=== PATIENT | female | born 2000 | race Caucasian/White ===

== ENCOUNTER 2021-12-03 18:48 | Emergency (ER) | payer OTHER, SELFPAY ==
[2021-12-03 18:56] VITALS: PULSE 105; RESP 20; O2SAT 100; BMI 35.8
--- NOTE | 2021-12-03 19:12 | XR_ITS ---
PROCEDURE INFORMATION: Exam: XR Right Hand Exam date and time: 12/03/2021 7:12 PM Age: 21 years old Clinical indication: Injury or trauma; Other: Punched a heater while angry; Blunt trauma (contusions or hematomas); Hand; Patient HX: Patient punched a metal heater while angry. Right 4th metacarpal pain. Shielded. TECHNIQUE: Imaging protocol: XR Right hand. Views: 3 or more views. COMPARISON: No relevant prior studies available. FINDINGS: Bones/joints: Acute, mildly comminuted fracture of the 5th metacarpal neck. There is mild impaction and approximately 20 degrees volar angulation of the distal fragment. Soft tissues: Soft tissue swelling. IMPRESSION: Acute, mildly impacted/angulated 5th metacarpal neck fracture.
[2021-12-03 19:49] VITALS: BP 131/91; PULSE 95; RESP 16; TEMP 37; O2SAT 100; BMI 28.3
--- NOTE | 2021-12-03 20:11 | HMH.EDUTC ---
[facility] [place] Clinical Impression: Hand fracture Qualifiers: Encounter type: initial encounter Fracture type: closed Laterality: right Qualified Code(s): S62.91XA - Unspecified fracture of right wrist and hand, initial encounter for closed fracture Disposition: Home, Self-Care Condition on Discharge: Good Instructions: DI for a Hand Fracture, How To Perform RICE (Rest, Ice, Compress, Elevate), Amoxicillin and Clavulanic Acid, Hand Fracture Additional Instructions: *RICE, Rest the extremity, Ice 15-20 minutes 3-4 times daily, Compress- wear the hermes wrap as discussed as much as possible to help reduce swelling and pain, Elevate the extremity when at rest *Hermes wrap/Orthoglass Splint is for support and help control swelling, Be sure that is not to tight but not to loose either *Elevate when resting *take Tylenol as directed on package for pain Immediately follow up with your family doctor for new or worsening of symptoms, or no noticeable improvement over the next 3-[address] Lipscomb's office in the morning for appointment Take medications as prescribed to prevent infection Prescriptions: Amoxicillin/Potassium Clav [Amox-Clav 875-125 mg Tablet] 1 tab PO BID #14 tab Transmission Status: Received by [id number] Referrals: ProviderKay MD [Primary Care Provider] - As needed Jan Lipscomb MD [Staff Physician] - (call office in the morning for appointment) Forms: Work/School Release Time of Disposition: 20:34 Medical Decision Making - Payam Inquiry Pt receiving controlled substance: No Payam was queried for this patient: No Vital Signs: 12/03/21 18:56 12/03/21 19:49 Temperature 98.6 F Temperature Source Oral Pulse Rate [Left Radial] 105 H 95 H Respiratory Rate 20 16 Blood Pressure [Right Arm] 131/91 H Blood Pressure Mean [Right Arm] 104 Blood Pressure Source [Right Arm] Automatic Cuff Blood Pressure Position [Right Arm] Sitting 02 Sat by Pulse Oximetry 100 100 Oxygen Delivery Method Room Air Room Air - Lab Data Lab Results 12/03/21 19:58: [facility] Positive - Radiology Data #1 Image(s): Hand Image Reviewed: Yes I have reviewed radiologist's interpretation IMPRESSION: Acute, mildly impacted/angulated 5th metacarpal neck fracture. - Physician Consults Physician Consulted: Dr Lipscomb Time: 20:26 Reason -: Orthopedic Eval/Care Comment/Response: spoke with Dr Lipscomb and he advised kelsey splint and ulnar gutter and due to abrasions start patient on antibiotics to cover infection and have her call office in the morning for appointment Medical Decision Narrative: patient denies , will fully shield for xray of hand Discussed with patient after she advised that she was on Depo and she stopped having periods in Nov but she took several home test and still denies will do test in the [facility] and patient now agreeing [facility] [place] - General Stated complaint: AO 12/02@2300 injured R Wrist Time Seen by Provider: 12/03/21 20:11 Mode of Arrival: Ambulatory Source of Information: Patient Limitations: No Limitations Description of Symptoms (Recalled from Triage Doc. by RN): Pt stated that she has injured right pinky after hitting it on a heater last night HEENT Symptoms (Recalled from RN notes): No Resp Symptoms (Recalled from RN notes): No Skin Symptoms (Recalled from RN notes): No MS Symptoms (Recalled from RN notes): No Functional Status (Recalled from RN notes): n/a - History of Present Illness Provider Complaint: Patient states that she was mad and punched a heater States she felt a pop in her right little finger States that she had a friend try to pull the finger and put it back in place and she did feel it pop again States that she was still having pain so she came in to get it checked - Related Data Previous Rx's Medication Instructions Recorded Amoxicillin/Potassium Clav 1 tab PO BID #14 tab 12/03/21 [Amox-Cla
[2021-12-03 20:24] LABS: UTC Pregnancy Test, Urine Positive (Negative)
[2021-12-03 21:34] VITALS: BP 131/91; PULSE 95; RESP 16; TEMP 37; O2SAT 100
== END 2021-12-03 21:34 | disposition home or self-care (01) ==
PROVIDERS: Emergency Provider Nurse Practitioner
DX: S62.336A Displaced fracture of neck of fifth metacarpal bone, right hand, initial encounter for closed fracture (principal); W22.8XXA Striking against or struck by other objects, initial encounter; Y92.9 Unspecified place or not applicable; Z88.2 Allergy status to sulfonamides
CPT/HCPCS: 29125; 73130; 81025; 99213; G0463

== ENCOUNTER → 2021-12-05 11:47 | Outpatient (CLI) | payer OTHER, SELFPAY ==
[2021-12-05 13:28] LABS: HCG,Quantitative 56033 mIU/ml (0-5.42)
== END ==
PROVIDERS: Visit Provider Obstetrics & Gynecology
DX: Z32.01 Encounter for pregnancy test, result positive (principal)
CPT/HCPCS: 36415; 84702

== ENCOUNTER → 2021-12-07 09:48 | Outpatient (CLI) | payer OTHER, SELFPAY ==
--- NOTE | 2021-12-07 10:41 | US_ITS ---
FINAL REPORT CLINICAL HISTORY: Dates FINDINGS: There is a single live intrauterine gestation. Presentation is breech. The cervix is closed and measures 3.5 cm. Placenta is posterior. Cardiac activity is confirmed at 149 bpm. The visualized anatomy is within normal limits. MEASUREMENTS: ULTRASOUND AGE: 16 weeks 3 days. GESTATION AGE: 16 weeks 4 days. ESTIMATED WEIGHT: 157 g GROWTH PERCENTILE: 34% BPD: 3.3 cm consistent with 16 weeks 3 days. OFD: 4.1 cm consistent with 16 weeks 1 days. HC: 11.8 cm consistent with 15 weeks 6 days. AC: 10.9 cm consistent with 16 weeks 6 days. FL: 2.1 cm consistent with 16 weeks 2 days. HC/AC: 1.08 CI: 81% FL/BPD: 63% FL/AC: 19% IMPRESSION: Single living IUP with an ultrasound age of 16 weeks 3 days. Reviewed, Interpreted and Dictated by Steve Schwarz III, MD Transcribed by Efra Graves Authenticated by Steve Schwarz III, MD on 12/07/2021 03:10:42 PM [facility]
[2021-12-07 11:05] LABS: Basophils % 0.2 % (0.1-2.0); Eosinophils # 0.1 K/mm3 (0.0-0.4); Hematocrit 38.2 % (37.0-47.0); Hemoglobin 12.9 g/dL (12.2-16.2); Lymphocytes # 2.4 K/mm3 (0.7-4.5); Lymphocytes % 29.3 % (10-50); Mean Corpuscular HGB Conc 33.7 g/dL (31.8-35.4); Mean Corpuscular Hemoglobin 29.8 pg (27.0-31.2); Mean Corpuscular Volume 88.6 fl (81-99); Monocytes # 0.4 K/mm3 (0.1-1.0); Monocytes % 4.2 % (1.7-9.3); Neutrophils # 5.4 K/mm3 (1.8-7.8); Neutrophils % 65.3 % (37.0-80.0); Platelet Count 292 K/mm3 (142-424); Red Blood Count 4.31 M/mm3 (4.20-5.40); Red Cell Distribution Width 13.7 % (11.5-17.5); White Blood Count 8.3 K/mm3 (4.8-10.8)
[2021-12-08 08:15] LABS: HIV Screen 4th Generation wRfx Non Reactive (Non Reactive); Hepatitis B Surface Antigen Negative (Negative); Hepatitis C Antibody <0.1 s/co ratio (0.0-0.9); Rubella Antibodies, IgG 1.82 index (Immune >0.99)
[2021-12-08 11:18] LABS: Rapid Plasma Reagin Ab Titer Non Reactive (NonRea<1:1)
== END ==
PROVIDERS: Visit Provider Obstetrics & Gynecology
DX: Z34.90 Encounter for supervision of normal pregnancy, unspecified, unspecified trimester (principal)
CPT/HCPCS: 36415; 76805; 85025; 86592; 86703; 86762; 86850; 87340; 87380; G0432

== ENCOUNTER 2022-01-07 00:35 | Outpatient (CLI) | payer OTHER, SELFPAY ==
[2022-01-07 00:38] VITALS: BP 156/93; PULSE 115; RESP 18; TEMP 37.3; O2SAT 100; BMI 38.0
[2022-01-07 00:55] LABS: Microscopic, Urine URINE MICROSCOPIC (MICROSCOPIC)
[2022-01-07 00:56] LABS: Appearance,Urine SL CLOUDY (Clear); Bilirubin,Urine Negative (Negative); Blood, Urine Negative (Negative); Color,Urine YELLOW (Yellow); Glucose,Urine (UA) Negative (Negative); Ketones,Urine Negative (Negative); Leukocyte Esterase,Urine Negative (Negative); Nitrate,Urine Negative (Negative); PH,Urine 5.5 (5.0-8.5); Protein,Urine Negative (Negative); Specific Gravity, Urine >= 1.030 (1.005-1.030); Urobilinogen,Urine 0.2 EU/dl (0.2)
[2022-01-07 01:02] LABS: Amorphous Sediment,Urine Trace /lpf; Squamous Epithelial Cell,Urine 20-50 #/hpf (0-5)
[2022-01-07 01:06] LABS: Benzodiazepines Screen,Urine Negative ng/ml (<200)
[2022-01-07 01:07] LABS: Amphetamine/Metha Screen,Urine Negative ng/ml (<1000)
[2022-01-07 01:08] LABS: Barbiturates Screen,Urine Negative ng/ml (<200); Cannabinoid Screen,Urine Negative ng/ml (<50)
[2022-01-07 01:09] LABS: Cocaine Screen,Urine Negative ng/ml (<300); Methadone Screen,Urine Negative ng/ml (<300)
[2022-01-07 01:10] LABS: Opiate Screen,Urine Negative ng/ml (<300)
[2022-01-07 01:11] LABS: Phencyclidine Screen,Urine Negative ng/ml (<25)
== END 2022-01-07 01:42 | disposition home or self-care (01) ==
LOC: OBOUT 00:36 → OB 00:36
PROVIDERS: Visit Provider Obstetrics & Gynecology
DX: O36.8120 Decreased fetal movements, second trimester, not applicable or unspecified (principal); Z3A.20 20 weeks gestation of pregnancy
CPT/HCPCS: 80305; 81001; G0463

== ENCOUNTER → 2022-01-09 12:48 | Outpatient (CLI) | payer OTHER, SELFPAY ==
--- NOTE | 2022-01-09 12:57 | US_ITS ---
FINAL REPORT CLINICAL HISTORY: anatomy scan , OB complete FINDINGS: There is a single live intrauterine gestation. Presentation is cephalic. Placenta is posterior. movement is noted. Cardiac activity is confirmed at 150 beats per minute. Three-vessel cord with satisfactory umbilical cord insertion. Four-chamber heart is noted. brain and ventricles are unremarkable. Chest and diaphragm are unremarkable. ABDOMEN: Both kidneys are unremarkable. Stomach is unremarkable. SPINE: No anomalies identified. Both arms and legs noted. AMNIOTIC FLUID: Appropriate amount. MEASUREMENTS: ULTRASOUND AGE: 21 weeks 2 days. GESTATION AGE: 21 weeks 1 days. ESTIMATED WEIGHT: 405 g GROWTH PERCENTILE: 46 % BPD: 5.1 cm consistent with 21 weeks 5 days. OFD: 6.3 cm consistent with 21 weeks 1 days. HC: 18.1 cm consistent with 20 weeks 4 days. AC: 16.0 cm consistent with 21 weeks 2 days. FL: 3.6 cm consistent with 21 weeks 3 days. CEREBELLUM: 2.1 cm consistent with 21 weeks 3 days. HUMERUS: 3.3 cm consistent with 21 weeks 0 days. Nuchal fold: 2.12 mm HC/AC: 1.13 CI: 81% FL/BPD: 70% FL/AC: 22% IMPRESSION: Single living IUP with an ultrasound age of 21 weeks 2 days. Reviewed, Interpreted and Dictated by Steve Schwarz III, MD Transcribed by Efra Graves Authenticated by Steve Schwarz III, MD on 01/09/2022 03:08:31 PM [facility]
== END ==
PROVIDERS: Visit Provider Obstetrics & Gynecology
DX: Z34.90 Encounter for supervision of normal pregnancy, unspecified, unspecified trimester (principal)
CPT/HCPCS: 76805

== ENCOUNTER 2022-03-26 00:55 | Outpatient (CLI) | payer OTHER, SELFPAY ==
[2022-03-26 01:09] VITALS: BMI 40.2
[2022-03-26 01:24] LABS: Microscopic, Urine URINE MICROSCOPIC (MICROSCOPIC)
[2022-03-26 01:30] LABS: Bilirubin,Urine Negative (Negative); Blood, Urine 3+ (Negative); Color,Urine YELLOW (Yellow); Glucose,Urine (UA) Negative (Negative); Ketones,Urine 1+ (Negative); Leukocyte Esterase,Urine Negative (Negative); Nitrate,Urine Negative (Negative); Protein,Urine TRACE (Negative); Specific Gravity, Urine >= 1.030 (1.005-1.030); Urobilinogen,Urine 0.2 EU/dl (0.2)
[2022-03-26 01:31] VITALS: BP 137/76; PULSE 104; RESP 18; TEMP 36.6; O2SAT 96; BMI 40.2
[2022-03-26 01:31] LABS: Appearance,Urine Slightly Cloudy (Clear)
[2022-03-26 01:50] LABS: Bacteria,Urine 2+ /lpf; WBC,Urine Occasional #/hpf (0-3)
[2022-03-26 01:51] LABS: Amorphous Sediment,Urine 1+ /lpf
== END 2022-03-26 02:10 | disposition home or self-care (01) ==
LOC: OBOUT 00:56 → OB 00:57
PROVIDERS: PCP Physician Assistant; Visit Provider Obstetrics & Gynecology
DX: O26.893 Other specified pregnancy related conditions, third trimester (principal); Z3A.32 32 weeks gestation of pregnancy
CPT/HCPCS: 59025; 81001; 87086; G0463

== ENCOUNTER → 2022-03-26 13:48 | Outpatient (CLI) | payer OTHER, SELFPAY ==
--- NOTE | 2022-03-26 13:48 | US_ITS ---
FINAL REPORT CLINICAL HISTORY: Growth and SALINA FINDINGS: There is a single live intrauterine gestation. Presentation is cephalic. The cervix is closed and measures 3.2 cm. Placenta is posterior grade 2. movement is noted. The heart rate is 134 beats per minute. There is a questionable small area of placental abruption posteriorly. MEASUREMENTS: ULTRASOUND AGE: 32 weeks 4 days. GESTATION AGE: 32 weeks 0 days. ESTIMATED WEIGHT: 1896 g GROWTH PERCENTILE: 41% BPD: 8.34 cm consistent with 33 weeks 4 days. OFD: 10.43 cm consistent with 32 weeks 5 days. HC: 29.67 cm consistent with 32 weeks 6 days. AC: 27.94 cm consistent with 32 weeks 0 days. FL: 6.07 cm consistent with 31 weeks 4 days. Amniotic fluid index is 10.5 cm HC/AC: 1.06 CI: 80% FL/BPD: 73% FL/AC: 22% IMPRESSION: Single living IUP with an ultrasound age of 32 weeks 4 days. Questionable small area of placental abruption posteriorly. Reviewed, Interpreted and Dictated by Steve Schwarz III, MD Transcribed by Janelle Chang Authenticated and [facility]
== END ==
PROVIDERS: PCP Physician Assistant; Visit Provider Obstetrics & Gynecology
DX: O36.5990 Maternal care for other known or suspected poor fetal growth, unspecified trimester, not applicable or unspecified (principal)
CPT/HCPCS: 76816

== ENCOUNTER → 2022-04-02 09:56 | Outpatient (CLI) | payer OTHER, SELFPAY ==
--- NOTE | 2022-04-02 09:57 | US_ITS ---
FINAL REPORT CLINICAL HISTORY: follow up from previous u/s COMPARISON: 03/26/2022 FINDINGS: There is a single live intrauterine gestation. Presentation is cephalic. The cervix is closed and measures 3.19 cm. Placenta is posterior grade 2. Cardiac activity is confirmed at 155 bpm. Fetus is active. The amniotic fluid index is 14 cm which is normal. BREATHIN MOVEMENT: 2 TONE: 2 FLUID VOLUME: 2 BPP SCORE: 8 The questionable area of placental abruption seen on the prior is no longer seen on today's exam. IMPRESSION: Single living IUP with an ultrasound age of 33 weeks 0 days. BPP SCORE: 8 Reviewed, Interpreted and Dictated by Steve Schwarz III, MD Transcribed by Mallorie Tam Authenticated and [facility]
== END ==
PROVIDERS: PCP Physician Assistant; Visit Provider Obstetrics & Gynecology
DX: O45.90 Premature separation of placenta, unspecified, unspecified trimester (principal)
CPT/HCPCS: 76819